=== PATIENT | male | born 1965 | race Caucasian/White ===

== ENCOUNTER 2016-08-09 09:36 | Emergency (ER) | payer OTHER ==
[~2016-08-09] VITALS: Ht 177.8 cm; Wt 100.0 kg
[2016-08-09 09:40] VITALS: Ht 177.8 cm; Wt 100.0 kg
[2016-08-09] MEDS ORDERED: SOD CHLORIDE 0.9% 1,000 ML IV STA (09:43)
[2016-08-09] MEDS ORDERED: LEVETIRACETAM IV 1,000 MG in SOD CHLORIDE 0.9% 100 ML IVPB STA (09:43)
[2016-08-09] MEDS ORDERED: LORAZEPAM 2 MG INJ IV STA (09:43)
--- NOTE | 2016-08-09 10:27 | ERD ---
ER Documentation Chief Complaint Date/Time DATE: 08/09/16 TIME: 10:24 Chief Complaint BIB [facility] FOR SEIZURE HX OF SZ ON DEPAKOTE. NO APPARENT INJURIES HPI This is a 51-year-old male with a known history of epilepsy currently on Depakote. The patient has a known history of paranoid schizophrenia, bipolar disorder, major depressive disorder and hyperlipidemia as well as hypertension. The patient resides at a [id number] facility, [facility], and just prior to arrival he had a witnessed tonic-clonic seizure that lasted for an unknown amount of time. He lost urinary continence but did not bite his tongue. The patient is not complaining of a headache. He denies any neck pain. He has had no recent fever shaking or chills. He states his last seizure was roughly 1 month ago. The patient indicates that he is compliant with his medications. ROS All systems reviewed and are negative except as per history of present illness. Medications Home Meds Reported Medications Olanzapine* (Zyprexa*) 10 Mg Tablet, 20 MG PO BID, #30 TAB 08/09/16 Enalapril Maleate* (Vasotec*) 10 Mg Tablet, 10 MG PO BID, TAB 08/09/16 Quetiapine Fumarate* (Seroquel*) 300 Mg Tablet, 300 MG PO BID, TAB 08/09/16 Levothyroxine Sodium* (Levoxyl*) 25 Mcg Tablet, 25 MCG PO BEFORE BREAKFAST, #30 TAB 08/09/16 Levetiracetam* (Keppra*) 500 Mg Tablet, 500 MG PO BID, TAB 08/09/16 Divalproex Sodium* (Divalproex Sodium*) 500 Mg Tablet.dr, 1500 MG PO BID, #90 TAB 08/09/16 Aspirin (Low Dose Aspirin) 81 Mg Tablet.dr, 81 MG PO DAILY, #30 TAB 08/09/16 Allergies Allergies: Coded Allergies: Penicillins (Verified Allergy, Unknown, 08/09/16) Physical Exam Vitals Vital Signs Date Time Temp Pulse Resp B/P Pulse Ox O2 Delivery O2 Flow Rate FiO2 08/09/16 11:45 82 16 123/85 96 Room Air 08/09/16 09:40 97.9 84 18 134/69 100 Physical Exam Constitutional:Well-developed. Well-nourished. HEENT:Normocephalic. Atraumatic.Pupils were equal round reactive to light. Moist mucous membranes.No tonsillar exudates. No nasal septal hematoma. No hemotympanum. Neck: No nuchal rigidity. No lymphadenopathy. No posterior cervical spine tenderness or step-offs. Respiratory: Not using accessory muscles of respiration.Lungs were clear to auscultation bilaterally. No rhonchi. No rales. No wheezing. Cardiovascular: Regular rate regular rhythm.No murmurs. No rubs were appreciated.S1, S2 normal. Distal pulses are palpable 2+ bilaterally. GI: Abdomen was obese so exam is limited due to body habitus. Nontender. Non Distended. No pulsatile abdominal masses or bruits. No rebound. No guarding. Bowel sounds were present and normal. Muscle skeletal: Full range of motion of both the upper and lower extremities bilaterally.Normal muscle tone.No assymetrical calf tenderness or swelling. Skin: No petechia, no purpura. No lesions on the palms or the soles of the feet. No maculopapular rash. NEURO: Patient was alert, awake, orientated x3.No facial droop. Gait observed and normal with no ataxia. Speech was slurred but patient states this is his baseline. No focal neurological deficits. Result Diagram: 08/09/16 1018 08/09/16 1018 Results 24 hrs Laboratory Tests Test 08/09/16 10:18 Activated Partial Thromboplast Time 27.8Sec Alanine Aminotransferase (ALT/SGPT) 26IU/L Albumin 4.0g/dl Albumin/Globulin Ratio 1.17 Alkaline Phosphatase 90IU/L Anion Gap 16 Aspartate Amino Transf (AST/SGOT) 39IU/L Basophils # 0.010^3/ul Basophils % 0.4% Blood Morphology Comment Blood Urea Nitrogen 16mg/dl Calcium Level 9.0mg/dl Carbon Dioxide Level 34mmol/L Chloride Level 97mmol/L Creatinine 0.72mg/dl Direct Bilirubin 0.00mg/dl Eosinophils # 0.210^3/ul Eosinophils % 2.0% Ethyl Alcohol Level < 10.0mg/dl Globulin 3.40g/dl Glucose Level 106mg/dl Hematocrit 44.5% Hemoglobin 15.2g/dl INR International Normalized Ratio 0.93 Indirect Bilirubin 0.1mg/dl Lymphocytes # 1.710^3/ul Lymphocytes % 17.2% Mean Corpuscular Hemoglobin 30.4pg Mean Corpuscular Hemoglobin Concent 34.1g/dl Mean Corpuscular Volume 89.2fl Mean Platelet Volume 7.0fl Monocytes # 1.310^3/ul Monocytes % 13.8% Neutrophils # 6.410^3/ul Neutrophils % 66.6% Nucleated Red Blood Cells # 0.010^3/ul Nucleated Red Blood Cells % 0.0/100WBC Platelet Count 56494^3/UL Potassium Level 4.0mmol/L Prothrombin Time 12.5Sec Prothrombin Time Ratio 1.0 Red Blood Count 4.9910^6/ul Red Cell Distribution Width 14.4% Sodium Level 143mmol/L Total Bilirubin 0.1mg/dl Total Protein 7.4g/dl Troponin I < 0.012ng/ml White Blood Count 9.610^3/ul Current Medications Medications (Trade) Dose Ordered Sig/[place] Route PRN Reason Start Time Stop Time Status Last Admin Dose Admin Sodium Chloride (NS) 1,000 ml @ 1,000 mls/hr Q1H STAT IV 08/09/16 09:43 08/09/16 10:42 DC 08/09/16 10:18 Lorazepam 1 mg 1 mg ONCE STAT IV 08/09/16 09:43 08/09/16 09:44 DC 08/09/16 10:18 Levetiracetam/ Sodium Chloride (Keppra Iv/NS) 110 ml @ 400 mls/hr ONCE STAT IVPB 08/09/16 09:43 08/09/16 09:59 DC 08/09/16 11:09 Procedures/MDM This patient presented to the emergency department after he had a witnessed tonic-clonic seizure and on physical exam had no acute findings to suggest blunt head trauma. The patient was placed in a director cardiac continuous pulse oximetry and IV access was established by nursing staff. The patient received 1 mg of Ativan intravenously and was given IV Keppra. Ancillary laboratory work showed no electrolyte abnormalities. 12 Lead EKG tracing ordered and reviewed by myself showed: Normal sinus rhythm of 86 bpm and no arrhythmia. [place] interval normal. QRS duration normal. No ST segment elevation No ST segment depression. No changes consistent with acute ischemia. The patient had no electrolyte abnormalities. The patient appeared to have underlying neurological disorder that was a result of his epilepsy, but the patient was a poor historian and I have no previous medical records and the patient was unable to give me the etiology into his epilepsy. However during an observation period of over 3 hours the patient had no seizure activity. He had received the antiepileptic medication. He was given a meal in the emergency department stated he felt comfortable going back to his board-and- care facility. He did not require medication refills disease currently on Depakote. The patient was discharged home in fair condition. They were instructed to return to the emergency department at any time if there was any worsening of their condition. The patient stated they would follow up with their PCP in the next 24-48 hours to initiate a suitable medication regimen under the care of their PCP as well as to allow their PCP to monitor any drug reactions. The patient was discharged home with prescriptions after they gave informed consent to the new medication. They were also fully informed by myself on the adverse effects and adverse drug interactions in order to provide adequate safeguards to prevent possible adverse reactions to medications. Departure Diagnosis: Primary Impression: Breakthrough seizure Condition: Serious KRISTEN PABLO Aug 09, 2016 10:27
[2016-08-09 10:30] LABS: BASOPHILS % 0.4 % (0.0-2.0); EOSINOPHILS # 0.2 10^3/ul (0.0-0.5); HEMATOCRIT 44.5 % (42.0-52.0); HEMOGLOBIN 15.2 g/dl (14.0-18.0); LYMPHOCYTES # 1.7 10^3/ul (0.8-2.9); LYMPHOCYTES % 17.2 % (15.0-51.0); MEAN CORPUSCULAR HEMOGLOBIN 30.4 pg (29.0-33.0); MEAN CORPUSCULAR HGB CONC 34.1 g/dl (32.0-37.0); MEAN CORPUSCULAR VOLUME 89.2 fl (82.0-101.0); MONOCYTE # 1.3 10^3/ul (0.3-0.9); MONOCYTES % 13.8 % (0.0-11.0); NEUTROPHIL # 6.4 10^3/ul (1.6-7.5); NEUTROPHILS % 66.6 % (39.0-77.0); PLATELET COUNT 175 10^3/UL (140-440); RED BLOOD COUNT 4.99 10^6/ul (4.70-6.10); RED CELL DISTRIBUTION WIDTH 14.4 % (11.5-14.5); UNCORRECTED WBC 9.6 10^3/ul (4.8-10.8); WHITE BLOOD COUNT 9.6 10^3/ul (4.8-10.8)
[2016-08-09 10:32] LABS: CONDITION 1
[2016-08-09] MEDS ORDERED: ASPI-664 PO (10:33)
[2016-08-09] MEDS ORDERED: LEVE-5 PO (10:34)
[2016-08-09] MEDS ORDERED: DIVA-16 PO (10:34)
[2016-08-09] MEDS ORDERED: LEVO25TA50 PO (10:35)
[2016-08-09] MEDS ORDERED: QUET300T13 PO (10:35)
[2016-08-09] MEDS ORDERED: ENAL10TA78 PO (10:36)
[2016-08-09] MEDS ORDERED: OLAN10TA7 PO (10:37)
[2016-08-09 11:02] LABS: CHLORIDE 97 mmol/L (97-110); INR 0.93; PROTIME 12.5 Sec (12.2-14.2)
[2016-08-09 11:03] LABS: PARTIAL THROMBOPLASTIN TIME 27.8 Sec (25.0-35.0); SODIUM 143 mmol/L (135-144)
[2016-08-09 11:05] LABS: ALANINE AMINOTRANSFERASE 26 IU/L (13-69); ALBUMIN/GLOBULIN RATIO 1.17; ALKALINE PHOSPHATASE 90 IU/L (42-121); ANION GAP 16 (8-16); ASPARTATE AMINO TRANSFERASE 39 IU/L (15-46); BILIRUBIN,INDIRECT 0.1 mg/dl (0-1.1); BILIRUBIN,TOTAL 0.1 mg/dl (0.2-1.3); BLOOD UREA NITROGEN 16 mg/dl (7-20); CARBON DIOXIDE 34 mmol/L (21-31); CREATININE 0.72 mg/dl (0.61-1.24); GLUCOSE 106 mg/dl (70-220); TOTAL PROTEIN 7.4 g/dl (6.1-8.1)
[2016-08-09 11:06] LABS: ETHANOL < 10.0 mg/dl
[2016-08-09 11:23] LABS: TROPONIN-I < 0.012 ng/ml (0.00-0.12)
[2016-08-09 12:56] VITALS: BP 115/69; PULSE 78; RESP 16; TEMP 98
[2016-08-09] MEDS ORDERED: IBUP-1542 PO (13:41)
== END 2016-08-09 12:56 | disposition home or self-care (01) ==
LOC: E/R 09:36
DX: G40.409 Other generalized epilepsy and epileptic syndromes, not intractable, without status epilepticus (principal); I10 Essential (primary) hypertension; R40.2142 Coma scale, eyes open, spontaneous, at arrival to emergency department; R40.2252 Coma scale, best verbal response, oriented, at arrival to emergency department; R40.2362 Coma scale, best motor response, obeys commands, at arrival to emergency department; F17.210 Nicotine dependence, cigarettes, uncomplicated; Z79.82 Long term (current) use of aspirin
CPT/HCPCS: 80053; 80306; 84484; 85025; 85610; 85730; 93005; 96374; 96375; J1953; J2060; J7030; Z7502; Z7610

== ENCOUNTER 2017-02-09 10:48 | Emergency (ER) | payer OTHER ==
[~2017-02-09] VITALS: Ht 177.8 cm; Wt 129.6 kg
[~2017-02-09 10:48] MED LIST: ASPI-664 PO; DIVA-16 PO; ENAL10TA78 PO; IBUP-1542 PO; LEVE-5 PO; LEVO25TA50 PO; OLAN10TA7 PO; QUET300T13 PO
[2017-02-09 11:00] VITALS: Ht 177.8 cm; Wt 129.6 kg
[2017-02-09] MEDS ORDERED: LORAZEPAM 2 MG INJ ONE (11:08)
[2017-02-09 11:47] LABS: BASOPHIL # 0.1 10^3/ul (0.0-0.1); BASOPHILS % 1.2 % (0.0-2.0); EOSINOPHILS # 0.2 10^3/ul (0.0-0.5); EOSINOPHILS % 2.5 % (0.0-7.0); HEMATOCRIT 43.5 % (42.0-52.0); HEMOGLOBIN 13.9 g/dl (14.0-18.0); LYMPHOCYTES # 2.4 10^3/ul (0.8-2.9); LYMPHOCYTES % 31.5 % (15.0-51.0); MEAN CORPUSCULAR HEMOGLOBIN 28.6 pg (29.0-33.0); MEAN CORPUSCULAR VOLUME 89.5 fl (82.0-101.0); MEAN PLATELET VOLUME 9.4 fl (7.4-10.4); MONOCYTE # 0.8 10^3/ul (0.3-0.9); MONOCYTES % 10.6 % (0.0-11.0); PLATELET COUNT 171 10^3/UL (140-415); RED BLOOD COUNT 4.86 10^6/ul (4.70-6.10); RED CELL DISTRIBUTION WIDTH 14.4 % (11.5-14.5); WHITE BLOOD COUNT 7.6 10^3/ul (4.8-10.8)
[2017-02-09 12:09] LABS: CALCIUM 8.8 mg/dl (8.4-10.2); CREATININE 0.8 mg/dl (0.61-1.24); POTASSIUM 3.4 mmol/L (3.5-5.1)
--- NOTE | 2017-02-09 12:30 | ERD ---
ER Documentation Chief Complaint Date/Time DATE: 02/09/17 TIME: 12:29 Chief Complaint BIBA D/T TONIC CLONIC SEIZURE WITTNESSED APPROX 1 MIN. NO TRAUMA REPORTED HPI Patient is a 51-year-old male with seizures and psychiatric disease who presents with a seizure. Please note the history and physical exam is limited secondary to the patient's recall of the event. The patient was brought in by ambulance. He had a witnessed tonic-clonic seizure at his living facility. He has a history of the same. He takes seizure medications. He denies any complaints currently. This happened just prior to arrival. He did have an episode of incontinence during this. ROS All systems reviewed and are negative except as per history of present illness. Medications Home Meds Active Scripts Ibuprofen* (Motrin*) 600 Mg Tab, 600 MG PO Q8, #30 TAB Prov:KRISTEN PABLO 08/09/16 Reported Medications Olanzapine* (Zyprexa*) 10 Mg Tablet, 20 MG PO BID, #30 TAB 08/09/16 Enalapril Maleate* (Vasotec*) 10 Mg Tablet, 10 MG PO BID, TAB 08/09/16 Quetiapine Fumarate* (Seroquel*) 300 Mg Tablet, 300 MG PO BID, TAB 08/09/16 Levothyroxine Sodium* (Levoxyl*) 25 Mcg Tablet, 25 MCG PO BEFORE BREAKFAST, #30 TAB 08/09/16 Levetiracetam* (Keppra*) 500 Mg Tablet, 500 MG PO BID, TAB 08/09/16 Divalproex Sodium* (Divalproex Sodium*) 500 Mg Tablet.dr, 1500 MG PO BID, #90 TAB 08/09/16 Aspirin (Low Dose Aspirin) 81 Mg Tablet.dr, 81 MG PO DAILY, #30 TAB 08/09/16 Allergies Allergies: Coded Allergies: Penicillins (Verified Allergy, Unknown, 08/09/16) PMhx/Soc History of Surgery: No Anesthesia Reaction: No Hx Neurological Disorder: Yes (SEIZURE) Hx Respiratory Disorders: No Hx Cardiac Disorders: No Hx Psychiatric Problems: Yes (BIPOLAR, SCHITZOPHRENIA) Hx Miscellaneous Medical Probl: Yes (OBESITY) Hx Alcohol Use: No Hx Substance Use: No Hx Tobacco Use: No Smoking Status: Never smoker FmHx Family History: diabetes Physical Exam Vitals Vital Signs Date Time Temp Pulse Resp B/P Pulse Ox O2 Delivery O2 Flow Rate FiO2 02/09/17 11:00 98.4 78 16 145/89 95 Physical Exam Const: No acute distress Head: Atraumatic Eyes: Normal Conjunctiva ENT: Normal External Ears, Nose and Mouth. Neck: Full range of motion..~ No meningismus. Resp: Clear to auscultation bilaterally Cardio: Regular rate and rhythm, no murmurs Abd: Soft, non tender, non distended. Normal bowel sounds Skin: No petechiae or rashes Back: No midline or flank tenderness Ext: No cyanosis, or edema Neur: Awake and alert Psych: Normal Mood and Affect Result Diagram: 02/09/17 1114 02/09/17 1114 Results 24 hrs Laboratory Tests Test 02/09/17 11:14 White Blood Count 7.610^3/ul Red Blood Count 4.8610^6/ul Hemoglobin 13.9g/dl Hematocrit 43.5% Mean Corpuscular Volume 89.5fl Mean Corpuscular Hemoglobin 28.6pg Mean Corpuscular Hemoglobin Concent 32.0g/dl Red Cell Distribution Width 14.4% Platelet Count 37854^3/UL Mean Platelet Volume 9.4fl Neutrophils % 50.0% Lymphocytes % 31.5% Monocytes % 10.6% Eosinophils % 2.5% Basophils % 1.2% Nucleated Red Blood Cells % 0.0/100WBC Neutrophils # (Manual) 410^3/ul Lymphocytes # 2.410^3/ul Monocytes # 0.810^3/ul Eosinophils # 0.210^3/ul Basophils # 0.110^3/ul Nucleated Red Blood Cells # 0.010^3/ul Sodium Level 137mmol/L Potassium Level 3.4mmol/L Chloride Level 94mmol/L Carbon Dioxide Level 34mmol/L Anion Gap 12 Blood Urea Nitrogen 18mg/dl Creatinine 0.80mg/dl Glucose Level 125mg/dl Calcium Level 8.8mg/dl Valproic Acid (Depakene) Level 104ug/ml Current Medications Medications (Trade) Dose Ordered Sig/[place] Route PRN Reason Start Time Stop Time Status Last Admin Dose Admin Lorazepam (Ativan) 2 mg STK-MED ONCE .ROUTE 02/09/17 11:08 02/09/17 11:09 DC Procedures/MDM Smoking Cessation Therapy: Pt. was lectured for greater than 3 minutes on the health risks of continued smoking and the benefits of cessation. Patient is a 51-year-old male with seizures who presents with an acute on chronic seizure. The patient was given Ativan to prevent further seizure. His valproic acid level is high and therefore he is most likely taking his medications. At this point I do not believe he requires further workup or admission the hospital at this time. I believe outpatient management is appropriate. He is back to his baseline at this time and has had no further seizures. He can return for any worsening symptoms. He should follow-up with his primary doctor within 24-48 hours. Departure Diagnosis: Primary Impression: Seizure Condition: Fair Patient Instructions: Seizure, Recurrent [Adult] Referrals: Your doctor Dr. Lara Additional Instructions: Call your primary care doctor TOMORROW for an appointment during the next 1-2 days.See the doctor sooner or return here if your condition worsens before your appointment time. DAVIDE ROBERSON MD Feb 09, 2017 12:24
[2017-02-09 13:29] VITALS: BP 129/88; PULSE 87; RESP 16; TEMP 98.4
== END 2017-02-09 13:37 | disposition home or self-care (01) ==
LOC: E/R 10:48
DX: R56.9 Unspecified convulsions (principal); R40.2252 Coma scale, best verbal response, oriented, at arrival to emergency department; E66.9 Obesity, unspecified; R40.2142 Coma scale, eyes open, spontaneous, at arrival to emergency department; R40.2362 Coma scale, best motor response, obeys commands, at arrival to emergency department; Z79.82 Long term (current) use of aspirin; Z68.41 Body mass index [BMI] 40.0-44.9, adult
CPT/HCPCS: 36415; 80048; 80164; 85025; J2060; Z7502; Z7610; 99283